=== PATIENT | male | born 1960 | race Caucasian/White ===

== ENCOUNTER 2017-02-17 21:04 | Emergency (ER) | payer OTHER ==
[~2017-02-17 21:04] MED LIST: CETIRIZINE HCL10 MG PO; FENOFIBRATE160 MG PO; FLEXERIL 10 MG10 MG PO; LOSARTAN POTAS100 MG PO; MELOXICAM15 MG PO; METFORMIN HCL1000 MG PO; NORCO 5-325 TA1 EACH PO; NORCO 7.5-3251 EACH PO; NORVASC 5 MG TAB5 MG PO; PRAVACHOL40 MG PO; RANITIDINE HCL300 MG PO; TYLENOL W/CODEIN1 E1 PO; VISTARIL25 MG PO; VITAMIN D2000 UNIT PO; WELLBUTRIN SR150 M1 PO
[2017-02-18 01:11] LABS: HEMOGLOBIN 18.5 gm/dl (14.0-17.5); RED BLOOD COUNT 5.88 M/UL (4.20-5.50); WHITE BLOOD COUNT 18.5 K/UL (4.5-11.0)
== END 2017-02-18 04:52 | disposition home or self-care (01) ==
LOC: ER1 21:04
PROVIDERS: Emergency Medicine
DX: E86.0 Dehydration (principal); N28.9 Disorder of kidney and ureter, unspecified; Z88.0 Allergy status to penicillin; Z88.8 Allergy status to other drugs, medicaments and biological substances
CPT/HCPCS: 36415; 80053; 82550; 82553; 83874; 83880; 84484; 85025; 96360; 99284; J7030